=== PATIENT | female | born 1965 | race Caucasian/White ===

== ENCOUNTER 2018-08-30 07:49 | Emergency (ER) | payer BC, MEDICAID ==
[~2018-08-30] VITALS: Ht 160 cm; Wt 127.3 kg
[~2018-08-30 07:49] MED LIST: INDO25CA18 PO
[2018-08-30 07:55] VITALS: BP 149/76
[2018-08-30] MEDS ORDERED: METH-360 PO (09:05)
[2018-08-30] MEDS ORDERED: NAPR-56 PO (09:05)
[2018-08-30] MEDS ORDERED: ketorolac trometh inj. 60 MG/2 ML VIAL IM ONE (09:05)
[2018-08-30] MEDS ORDERED: ketorolac trometh. 30mg/ml inj. IM ONE (09:05)
== END 2018-08-30 09:23 | disposition home or self-care (01) ==
LOC: ER 07:50
DX: M54.42 Lumbago with sciatica, left side (principal); E11.42 Type 2 diabetes mellitus with diabetic polyneuropathy; I10 Essential (primary) hypertension; Z98.890 Other specified postprocedural states; Z98.51 Tubal ligation status
CPT/HCPCS: 96372; 99283; J1885